=== PATIENT | male | born 1980 | race African-American/Black ===

== ENCOUNTER 2018-05-02 20:45 | Emergency (ER) | payer BC, OTHER ==
--- NOTE | 2018-05-02 20:47 | PDOC ---
Rapid Medical Evaluation Time Seen by Provider: 05/02/18 20:46 Medical Evaluation: Allergies Allergy/AdvReac Type Severity Reaction Status Date / Time No Known Allergies Allergy Verified 07/03/11 18:00 I have performed a brief in-person evaluation of this patient. The patient presents with a chief complaint of: toothache with left sided facial swelling Pertinent physical exam findings: significant left sided facial swelling I have ordered the following: nothing The patient will proceed to the ED for further evaluation. Discharge Disposition - Diagnosis Toothache, Facial swelling - Referrals - Patient Instructions - Post Discharge Activity
[2018-05-02 20:48] VITALS: BMI 22.9
--- NOTE | 2018-05-02 21:38 | PDOC ---
History of Present Illness - General Chief Complaint: Toothache Stated Complaint: TOOTHACHE Time Seen by Provider: 05/02/18 20:46 History Source: Patient Exam Limitations: No Limitations - History of Present Illness Initial Comments: 05/02/18 21:34 HISTORY OF PRESENT ILLNESS: 38-year-old male denies medical history with toothache and left-sided facial swelling starting today. Patient states his toothache started approximately one year ago but is been spontaneously resolving over that time. His most recent toothache his last for the past couple of weeks. Denies any foul taste in his mouth or discharge. Patient states he woke up this morning with left-sided facial swelling. Denies any fevers, chills. No recent travel or sick contacts. PAST MEDICAL HISTORY: Denies past medical history SURGICAL HISTORY: Denies ALLERGIES: No known drug allergies REVIEW OF SYSTEMS General/Constitutional: Denies fever or chills. Denies weakness, weight change. HEENT: Denies change in vision. Denies ear pain or discharge. Denies sore throat. Left sided facial swelling. +toothache. Cardiovascular: Denies chest pain or shortness of breath. Respiratory: Denies cough, wheezing, or hemoptysis. Gastrointestinal: Denies nausea, vomiting, diarrhea or constipation. Denies rectal bleeding. Genitourinary: Denies dysuria, frequency, or change in urination. Musculoskeletal: Denies joint or muscle swelling or pain. Denies neck or back pain. Skin and breasts: Denies rash or easy bruising. Neurologic: Denies headache, vertigo, loss of consciousness, or loss of sensation. Psychiatric: Denies depression or anxiety. Endocrine: Denies increased thirst. Denies abnormal weight change. Hematologic/Lymphatic: Denies anemia, easy bleeding, or history of blood clots. Allergic/Immunologic: Denies hives or skin allergy. Denies latex allergy. PHYSICAL EXAM General Appearance: Well-appearing, appropriately dressed. No apparent distress , no intoxication. HEENT: EOMI, PERRLA, normal ENT inspection, normal voice, TMs normal, pharynx normal. No conjunctival pallor. No photophobia, scleral icterus. Obvious dental caries to tooth #18. Firm nonfluctuant 4 cm circular area of swelling present to the left mandible midline between the mandibular angle and incisors. No trismus noted. Neck: Supple. Trachea midline. No tenderness, rigidity, carotid bruit, stridor , lymphadenopathy, or thyromegaly. Respiratory/Chest: Lungs CTAB. No shortness of breath, chest tenderness, respiratory distress, accessory muscle use. No crackles, rales, rhonchi, stridor , wheezing, dullness Cardiovascular: RRR. S1, S2. No JVD, murmur, bradycardia, tachycardia. Past History - Past Medical History Allergies/Adverse Reactions: Allergies Allergy/AdvReac Type Severity Reaction Status Date / Time No Known Allergies Allergy Verified 05/02/18 20:48 Home Medications: Ambulatory Orders NK [No Known Home Medication] 05/02/18 COPD: No - Suicide/Smoking/Psychosocial Hx Smoking Status: Yes Smoking History: Never smoked Number of Cigarettes Smoked Daily: 3 *Physical Exam - Vital Signs Last Vital Signs Temp Pulse Resp BP Pulse Ox 98.3 F 64 18 118/49 L 100 05/02/18 20:46 05/02/18 20:46 05/02/18 20:46 05/02/18 20:46 05/02/18 20:46 Moderate Sedation - Procedure Monitoring Vital Signs: Procedure Monitoring Vital Signs Temperature 98.3 F 05/02/18 20:46 Pulse Rate 64 05/02/18 20:46 Respiratory Rate 18 05/02/18 20:46 Blood Pressure 118/49 L 05/02/18 20:46 O2 Sat by Pulse Oximetry (%) 100 05/02/18 20:46 ED Treatment Course - LABORATORY CBC & Chemistry Diagram: 05/02/18 21:46 05/02/18 21:46 - RADIOLOGY Radiology Studies Ordered: Category Date Time Status FACIAL BONES CT WITH CONTRAST [CT] Stat CT Scan 05/02/18 21:31 Ordered Medical Decision Making - Medical Decision Making 05/02/18 21:34 A/P: 38-year-old male denies medical history with left mandibular swelling for 1 day Swelling and tenderness present to the left side of the mandible midway between the midline and the mandibular angle Swelling extends to the submandibular area Tender to palpation over molar on the lower left Obvious dental carry presents to the #[address] CT scan to rule out submandibular abscess Labs, IV 05/02/18 22:36 Laboratory testing is within normal limits. Patient has been signed out to nurse aaliyah Raphael for continued evaluation. *DC/Admit/Observation/Transfer Diagnosis at time of Disposition: Toothache, Facial swelling - Referrals - Patient Instructions - Post Discharge Activity
[2018-05-02 21:57] LABS: BASO % 0.9 % (0-2.0); EOS % 0.7 % (0-4.5); HEMATOCRIT 39.4 % (35.4-49); HEMOGLOBIN 13.5 GM/dL (11.7-16.9); LYMPH % 29.2 % (8-40); MCH 29.6 pg (25.7-33.7); MCHC 34.2 g/dl (32.0-35.9); MEAN CELL VOLUME 86.6 fl (80-96); MEAN PLT VOLUME 8.9 fl (7.5-11.1); MONO % 10.7 % (3.8-10.2); NEUT % 58.5 % (42.8-82.8); PLATELET COUNT 167 K/MM3 (134-434); RBC 4.56 M/mm3 (4.00-5.60); WHITE BLOOD COUNT 8.5 K/mm3 (4.0-10.0)
[2018-05-02 22:19] LABS: ANION GAP 7 MMOL/L (8-16); BLOOD UREA NITROGEN 17 mg/dL (7-18); CALCIUM 8.5 mg/dL (8.5-10.1); CHLORIDE 106 mmol/L (98-107); CO2 28 mmol/L (21-32); CREATININE 0.9 mg/dL (0.55-1.3); GLUCOSE,RANDOM 96 mg/dL (74-106); SODIUM 141 mmol/L (136-145)
--- NOTE | 2018-05-02 23:18 | PDOC ---
*Physical Exam - Vital Signs Last Vital Signs Temp Pulse Resp BP Pulse Ox 98.3 F 64 18 118/49 L 100 05/02/18 20:46 05/02/18 20:46 05/02/18 20:46 05/02/18 20:46 05/02/18 20:46 <Anup Gonzales - Last Filed: 05/03/18 00:27> - Vital Signs Last Vital Signs Temp Pulse Resp BP Pulse Ox 98.3 F 64 18 118/49 L 100 05/02/18 20:46 05/02/18 20:46 05/02/18 20:46 05/02/18 20:46 05/02/18 20:46 - Physical Exam HEENT: positive: Other (left side of facial swelling) <Mirna Raphael - Last Filed: 05/03/18 01:08> ED Treatment Course - LABORATORY CBC & Chemistry Diagram: 05/02/18 21:46 05/02/18 21:46 - ADDITIONAL ORDERS Additional order review: Laboratory Results 05/02/18 21:46 Sodium 141 Potassium 4.0 Chloride 106 Carbon Dioxide 28 Anion Gap 7 L BUN 17 Creatinine 0.9 Creat Clearance w eGFR > 60 Random Glucose 96 Calcium 8.5 05/02/18 21:46 RBC 4.56 MCV 86.6 MCHC 34.2 RDW 14.0 MPV 8.9 Neutrophils % 58.5 D Lymphocytes % 29.2 D Monocytes % 10.7 H D Eosinophils % 0.7 Basophils % 0.9 <Anup Gonzales - Last Filed: 05/03/18 00:27> - LABORATORY CBC & Chemistry Diagram: 05/02/18 21:46 05/02/18 21:46 - ADDITIONAL ORDERS Additional order review: Laboratory Results 05/02/18 21:46 Sodium 141 Potassium 4.0 Chloride 106 Carbon Dioxide 28 Anion Gap 7 L BUN 17 Creatinine 0.9 Creat Clearance w eGFR > 60 Random Glucose 96 Calcium 8.5 05/02/18 21:46 RBC 4.56 MCV 86.6 MCHC 34.2 RDW 14.0 MPV 8.9 Neutrophils % 58.5 D Lymphocytes % 29.2 D Monocytes % 10.7 H D Eosinophils % 0.7 Basophils % 0.9 <Mirna Raphael - Last Filed: 05/03/18 01:08> Medical Decision Making - Medical Decision Making 05/03/18 00:27 referred from fast track for facial cellulitis, CT confirms dental abscess/ phlegmon. does not have dental f/u, will need [facility] transfer for drainage, requesting [facility]. will arrange transfer. <Anup Gonzales - Last Filed: 05/03/18 00:27> - Medical Decision Making 05/03/18 00:04 CT facial bones: there is left mandibular region soft tissue edema likely reflecting cellulitis. there is a 1.8 x 0.8 x 2.2 cm region od decreased attentuation just adjacent to the anterior left mandible with questionable minimal enhancement which could represent subperosteal abscess formation of phlegmon. no CT sign osteomyelitis. 05/03/18 00:30 [facility] called for transfer, pending oral surgery acceptance prior to transfer 05/03/18 01:04 patient accepted for transfer by Dr. mo PGY1/ Dr. Akbar [facility] [place]. patient to be transferred to the ED for evaluation, patient accepted for ED transfer by Dr. Aguirre in the [facility] <Mirna Raphael - Last Filed: 05/03/18 01:08> *DC/Admit/Observation/Transfer <Anup Gonzales - Last Filed: 05/03/18 00:27> <Mirna Raphael - Last Filed: 05/03/18 01:08> Diagnosis at time of Disposition: Toothache, Facial swelling, Mandibular abscess - Discharge Dispostion Disposition: TRANSFER ACUTE CARE/OTHER HOSP
[2018-05-03] MEDS ORDERED: CLINDAMYCIN 600MG PREMIX IVPB 600 MG/50 ML BAG IVPB ONE ×2 (01:04→01:25)
[2018-05-03] MEDS ORDERED: SODIUM CHLORIDE 1,000 ML IV STA (01:14)
[2018-05-03 01:17] VITALS: BP 99/49; PULSE 66; TEMP 98
[2018-05-03] MEDS ORDERED: KETOROLAC TROMETHAMINE 30 MG/1 ML VIAL IVPUSH ONE (01:44)
[2018-05-03] MEDS ORDERED: KETOROLAC TROMETHAMINE 30 MG/1 ML VIAL ONE (01:46)
== END 2018-05-03 02:40 | disposition short-term general hospital (02) ==
LOC: JERFT 20:45 → JER 20:45
PROC: 3E0337Z Introduction of Electrolytic and Water Balance Substance into Peripheral Vein, Percutaneous Approach (ICD-10-PCS; principal; 2018-05-02)
PROC: 3E03329 Introduction of Other Anti-infective into Peripheral Vein, Percutaneous Approach (ICD-10-PCS; 2018-05-02)
PROC: 3E0333Z Introduction of Anti-inflammatory into Peripheral Vein, Percutaneous Approach (ICD-10-PCS; 2018-05-02)
DX: K04.7 Periapical abscess without sinus (principal); M27.2 Inflammatory conditions of jaws; K02.9 Dental caries, unspecified
CPT/HCPCS: 36415; 70487-TC; 80048; 85025; 99281-25; J7030

== ENCOUNTER 2022-04-14 04:32 | Day surgery (SDC) | payer OTHER ==
[2022-04-13 09:13] VITALS: BMI 32.5
[2022-04-14] MEDS ORDERED: LIDOCAINE HCL 1%, 10 MG/ML (20ML VIAL) ONE (14:51)
[2022-04-14] MEDS ORDERED: ACETAMINOPHEN 1000 MG/100 ML BAG IVPB ONE ×2 (14:52→15:46)
[2022-04-14] MEDS ORDERED: MIDAZOLAM HCL 2 MG/2 ML SINGLE DOSE VIAL ONE (14:55)
[2022-04-14] MEDS ORDERED: LIDOCAINE HCL/PF 2% SDV 5ML VIAL ONE (14:55)
[2022-04-14] MEDS ORDERED: FENTANYL CITRATE/PF 50 MCG/ML VIAL ONE ×8 (14:55→17:30)
[2022-04-14] MEDS ORDERED: PROPOFOL 20 ML ONE (14:55)
[2022-04-14] MEDS ORDERED: IBUPROFEN 800 MG/8 ML IJ IVPB SCH (15:00)
[2022-04-14] MEDS ORDERED: ceFAZolin SODIUM 1 GM VIAL IVPB ONE (15:02)
[2022-04-14] MEDS ORDERED: LIDOCAINE HCL 1%, 10 MG/ML (20ML VIAL) INF ONE (15:09)
[2022-04-14] MEDS ORDERED: ONDANSETRON 4 MG/2 ML VIAL IVPUSH PRN (15:46)
[2022-04-14] MEDS ORDERED: ACETAMINOPHEN INJECTION 100 ML IVPB ONE (15:47)
[2022-04-14] MEDS ORDERED: LACTATED RINGERS SOLUTION 1,000 ML IV SCH (16:00)
[2022-04-14] MEDS: LABETALOL HCL 5 MG/1 ML (100MG/20 ML VIAL) IVPUSH ONE ×2 (16:30→17:15)
[2022-04-14 16:34] VITALS: TEMP 98
[2022-04-14] MEDS ORDERED: LABETALOL HCL 5 MG/1 ML (100MG/20 ML VIAL) IVPUSH ONE ×2 (16:51→17:51)
[2022-04-14] MEDS ORDERED: IBUPROFEN 800 MG/8 ML IJ IVPB ONE (17:30)
[2022-04-14] MEDS ORDERED: FENTANYL CITRATE/PF 50 MCG/ML VIAL IVPUSH ONE (17:53)
[2022-04-14 18:32] VITALS: RESP 20
[2022-04-14 18:35] VITALS: BP 150/101; PULSE 70
== END 2022-04-14 19:20 | disposition home or self-care (01) ==
LOC: JASU-SURG 04:32
PROVIDERS: ATTEND Urology
PROC: 0VTTXZZ Resection of Prepuce, External Approach (ICD-10-PCS; principal; 2022-04-14 14:00)
DX: N47.1 Phimosis (principal)
CPT/HCPCS: 88304-TC; 94760